=== PATIENT | female | born 1950 | race Caucasian/White ===

== ENCOUNTER 2017-02-02 05:53 | Day surgery (SDC) | payer OTHER ==
[~2017-02-02] VITALS: Ht 154.9 cm; Wt 71.0 kg
[2017-02-02] VITALS (9 sets, daily range): BP systolic 90–118; BP diastolic 39–67; PULSE 63–105; RESP 16–28; Ht 154.9 cm; Wt 71.0 kg
[2017-02-02] MEDS ORDERED: CEFAZOLIN 1 GM INJ ONE (07:00)
[2017-02-02] MEDS ORDERED: SITA100T8 PO (07:07)
[2017-02-02] MEDS ORDERED: CHLO25TA13 PO (07:07)
[2017-02-02] MEDS ORDERED: LISI10TA2 PO (07:07)
[2017-02-02] MEDS ORDERED: morphine (1 MG/ML) 10ML SYRINGE IV PRN ×3 (07:30)
[2017-02-02] MEDS ORDERED: MEPERIDINE 25 MG INJ IV PRN (07:30)
[2017-02-02] MEDS ORDERED: FENTAnyl 50 MCG/ML VIAL IV PRN ×2 (07:30)
[2017-02-02] MEDS ORDERED: EPHEDrine SULFATE 50 MG/5 ML SYG IV PRN (07:30)
[2017-02-02] MEDS ORDERED: DIPHENHYDRAMINE 50 MG INJ IV PRN (07:30)
[2017-02-02] MEDS ORDERED: HYDROmorphONE (0.2 MG/ML) 10ML SYG IV PRN ×3 (07:30)
[2017-02-02] MEDS ORDERED: LABETALOL HCL 20MG INJ IV PRN (07:30)
[2017-02-02] MEDS ORDERED: OXYCODONE/ACETAMINOPHEN (5/325) TAB PO PRN ×2 (07:30)
[2017-02-02] MEDS ORDERED: MIDAZOLAM 1 MG/ML 2 ML INJ IV PRN (07:30)
[2017-02-02] MEDS ORDERED: ONDANSETRON 4 MG INJ IV PRN (07:30)
[2017-02-02] MEDS ORDERED: SOD CHLORIDE 0.9% 1,000 ML IV ONE (07:30)
[2017-02-02] MEDS ORDERED: hydrALAzine 20 MG INJ IV PRN (07:30)
[2017-02-02] MEDS ORDERED: ATROPINE 1 MG/10 ML SYRINGE IV PRN (07:30)
[2017-02-02 08:06] LABS: BASOPHILS % 0.3 % (0.0-2.0); EOSINOPHILS % 0.6 % (0.0-7.0); HEMATOCRIT 31.3 % (37.0-47.0); HEMOGLOBIN 10.4 g/dl (12.0-16.0); LYMPHOCYTES # 0.9 10^3/ul (0.8-2.9); LYMPHOCYTES % 14.5 % (15.0-51.0); MEAN CORPUSCULAR HEMOGLOBIN 26.5 pg (29.0-33.0); MEAN CORPUSCULAR HGB CONC 33.2 g/dl (32.0-37.0); MEAN CORPUSCULAR VOLUME 79.6 fl (82.0-101.0); MEAN PLATELET VOLUME 10.5 fl (7.4-10.4); MONOCYTE # 0.6 10^3/ul (0.3-0.9); MONOCYTES % 9.1 % (0.0-11.0); NEUTROPHIL # 4.9 10^3/ul (1.6-7.5); PLATELET COUNT 275 10^3/UL (140-415); RED BLOOD COUNT 3.93 10^6/ul (4.20-5.40); RED CELL DISTRIBUTION WIDTH 16.2 % (11.5-14.5); WHITE BLOOD COUNT 6.5 10^3/ul (4.8-10.8)
[2017-02-02 08:08] LABS: INR 0.98
[2017-02-02 08:10] LABS: ALBUMIN/GLOBULIN RATIO 1.05; BILIRUBIN,INDIRECT 0.7 mg/dl (0-1.1); BILIRUBIN,TOTAL 0.7 mg/dl (0.2-1.3); TOTAL PROTEIN 7.8 g/dl (6.1-8.1)
[2017-02-02 08:12] LABS: CALCIUM 9.7 mg/dl (8.4-10.2); CREATININE 0.83 mg/dl (0.44-1.00); POTASSIUM 3.9 mmol/L (3.5-5.1)
[2017-02-02 08:34] LABS: PARTIAL THROMBOPLASTIN TIME 35.8 Sec (25.0-35.0)
--- NOTE | 2017-02-02 08:39 | RADRPT ---
PROCEDURE: XR Chest. CLINICAL INDICATION: Preop TECHNIQUE: AP Portable chest. COMPARISON: No pertinent prior examinations were submitted for comparison. FINDINGS: The patient is rotated to the right. The cardiomediastinal silhouette is mildly enlarged. The aortic arch is calcified. No focal consolid ation, pleural effusion or pneumothorax is seen. The lung volumes are low with mild right basilar at electasis. There are degenerative changes in the shoulders, greater on the right. IMPRESSION: No radiographic evidence of acute cardiopulmonary disease. Mild cardiomegaly. Aortic atherosclerosis. Physician Markel Date Time Electronically viewed and signed by Physician Markel on 02/02/2017 08:39 CS/
[2017-02-02] MEDS ORDERED: LIDOCAINE 2% (SDV) 5 ML INJ ONE (10:00)
[2017-02-02] MEDS ORDERED: NEOSTIGMINE 3 MG/3 ML SYRINGE ONE (10:00)
[2017-02-02] MEDS ORDERED: ROCURONIUM 50 MG INJ ONE (10:00)
[2017-02-02] MEDS ORDERED: GLYCOPYRROLATE 0.4 MG INJ ONE (10:00)
[2017-02-02] MEDS ORDERED: PROPOFOL 20 ML ONE (10:00)
[2017-02-02] MEDS ORDERED: FENTAnyl 50 MCG/ML VIAL ONE (10:02)
[2017-02-02] MEDS ORDERED: MIDAZOLAM 1 MG/ML 2 ML INJ ONE (10:02)
[2017-02-02] MEDS ORDERED: ONDANSETRON 4 MG INJ ONE (10:05)
[2017-02-02] MEDS ORDERED: SUCCINYLCHOLINE CHLORIDE 100 MG/5 ML SYG IV ONE (10:20)
--- NOTE | 2017-02-02 11:17 | SIPON ---
Date/Time of Note Date/Time of Note DATE: 02/02/17 TIME: 11:15 Operative Report Preoperative Diagnosis Bilateral cervical lymphadenopathy Postoperative Diagnosis Same Operation/Procedure Performed Right cervical lymph node biopsy Surgeon see signature line claims assistant Dr Schmitt Anesthesia: general Estimated blood loss: 0 - 10 ml's Transfusion Required none Specimen Right cervical lymph node Grafts/Implants none Complications none MALIA BALDERRAMA MD Feb 02, 2017 11:17
--- NOTE | 2017-02-02 11:27 | OPR ---
DATE OF OPERATION: 02/02/2017 POSTOPERATIVE DIAGNOSIS: Bilateral cervical lymphadenopathy, need for excisional lymph node biopsy. POSTOPERATIVE DIAGNOSIS: Bilateral cervical lymphadenopathy, need for excisional lymph node biopsy. OPERATION PERFORMED: Excisional biopsy of right cervical lymph node. ANESTHESIA: General. ANESTHESIOLOGIST: Garth Mancilla MD SURGEON: Nitesh Mccann MD THIRD RIGGER: Dr. Schmitt. INDICATIONS FOR PROCEDURE: The patient is a 66-year-old female who presented with diffuse lymphaden opathy. In particular, she had bilateral cervical lymphadenopathy. A core biopsy was nondiagnostic . She was referred for surgical biopsy. She consented and was scheduled for surgery. DESCRIPTION OF PROCEDURE: The patient was brought to the operating theater, placed under general an esthesia. She was then put in a semi-Archuleta's position. The right cervical region was prepped and draped in usual sterile fashion. Approximately 3 cm incision was made directly over the palpable ly mph node. Subcutaneous tissue and superficial muscle layer of the deltoid was then transected with cautery and retracted posteriorly. This allowed for visualization of the enlarged lymph nodes. A l arge node was elevated and meticulously dissected from surrounding tissue using the LigaSure device to control lymphovascular structures. It was then elevated, transected, and sent for gross analysis , followed by permanent pathologic analysis including flow cytometry. The wound was then irrigated. Minimal bleeding was controlled with cautery. The skin was then reapproximated with 4-0 Vicryl harrell ture in subcuticular fashion, and benzoin and Steri-Strips were applied. Patient tolerated procedur e well. The estimated blood loss was approximately 10 mL. There were no complications and the may ent was transported in stable condition to the recovery room. Dictated By: NITESH TURNER/ROSAMARIA Conf#: [id number] DID#: [id number]
--- NOTE | 2017-02-02 16:56 | RADRPT ---
Vent Rate: 90 bpm RR Interval: 0 msec OK Interval: 164 msec QRS Duration: 94 msec QT Interval: 354 msec QTC Interval: 433 msec P-R-T [place]: 43 - 0 - 56 degrees Normal sinus rhythm Normal ECG Electronically Signed By: Kvng Rose [id number]
== END 2017-02-02 12:30 | disposition home or self-care (01) ==
LOC: SDS 05:53
PROVIDERS: ATTEND Surgery Surgical Oncology
DX: C83.31 Diffuse large B-cell lymphoma, lymph nodes of head, face, and neck (principal); R59.0 Localized enlarged lymph nodes; I10 Essential (primary) hypertension; E11.9 Type 2 diabetes mellitus without complications; E66.01 Morbid (severe) obesity due to excess calories
CPT/HCPCS: 38510; 71010; 80053; 82962; 85025; 85610; 85730; 88307; 88331; 93005; J0690; J2250; J2405; J3010; Z7512; Z7610; 88341; 88342; J2710